=== PATIENT | male | born 1955 ===

== ENCOUNTER 2020-11-28 07:34 | Outpatient (CLI) | payer OTHER | END 2020-11-28 18:50 | disposition home or self-care (01) | LOC: EDBD 07:34 → LAB 07:34 | PROVIDERS: ATTEND Emergency Medicine Pediatric Emergency Medicine | DX: Z20.828 Contact with and (suspected) exposure to other viral communicable diseases (principal) ==

== ENCOUNTER 2020-12-30 06:26 | Outpatient (CLI) | payer OTHER | END 2020-12-30 07:19 | disposition home or self-care (01) | LOC: EDBD 06:26 → LAB 06:26 | PROVIDERS: ATTEND Emergency Medicine Pediatric Emergency Medicine | DX: Z20.828 Contact with and (suspected) exposure to other viral communicable diseases (principal) ==

== ENCOUNTER 2021-01-24 06:32 | Outpatient (CLI) | payer OTHER | END 2021-01-24 09:09 | disposition home or self-care (01) | LOC: LAB 06:32 → EDBD 06:32 → LAB 09:09 | PROVIDERS: ATTEND Internal Medicine Endocrinology, Diabetes & Metabolism | DX: Z20.828 Contact with and (suspected) exposure to other viral communicable diseases (principal) ==